=== PATIENT | male | born 1980 | race Caucasian/White ===

== ENCOUNTER 2016-09-15 09:23 | Outpatient (CLI) | payer OTHER ==
[~2016-09-15] VITALS: Ht 182.9 cm; Wt 91.6 kg
[2016-09-15 09:35] VITALS: BP 129/86
[2016-09-22] MEDS ORDERED: HYDR-3812 PO (09:00)
== END 2016-09-15 09:45 | disposition home or self-care (01) ==
LOC: PREOP 09:23
PROVIDERS: ATTEND Podiatrist Foot & Ankle Surgery
DX: Z01.818 Encounter for other preprocedural examination (principal); Z11.2 Encounter for screening for other bacterial diseases; M72.2 Plantar fascial fibromatosis; M71.9 Bursopathy, unspecified; M79.2 Neuralgia and neuritis, unspecified
CPT/HCPCS: 87081

== ENCOUNTER 2016-09-22 06:00 | Day surgery (SDC) | payer OTHER ==
[~2016-09-22] VITALS: Ht 182.9 cm; Wt 91.6 kg
[2016-09-22] MEDS: LACTATED RINGERS 1,000 ML IV PRN ×2 (07:00→08:23)
[2016-09-22] MEDS ORDERED: BUPIVACAINE 0.5% 30 ML (SENSORCAINE) VIAL ONE (07:01)
[2016-09-22] MEDS ORDERED: ceFAZolin 1,000 MG (ANCEF) VIAL ONE (07:04)
[2016-09-22] MEDS ORDERED: NORMAL SALINE (BAXTER MINI) 50 ML IV ONE (07:04)
[2016-09-22] MEDS ORDERED: SEVOFLURANE (ULTANE) 15 ML INHAL SOLN ONE ×4 (07:07→10:07)
[2016-09-22] MEDS ORDERED: LIDOCAINE PF 2% 10 ML (XYLOCAINE) AMP ONE (07:07)
[2016-09-22] MEDS ORDERED: proPOfol 200 MG/20 ML (DIPRIVAN) VIAL IV ONE (07:07)
[2016-09-22] MEDS ORDERED: LACTATED RINGERS 1,000 ML IV ONE ×2 (07:07→08:27)
[2016-09-22] MEDS ORDERED: MIDAZOLAM 2 MG/2 ML (VERSED) VIAL ONE (07:08)
[2016-09-22] MEDS ORDERED: fentaNYL INJECTION 100 MCG/2 ML AMP ONE ×2 (07:08→08:15)
[2016-09-22 07:22] VITALS: BP 130/86
[2016-09-22] MEDS ORDERED: ceFAZolin 1 GM/NS 50 ML IVPB IV ONE ×2 (07:30)
[2016-09-22] MEDS ORDERED: CATHETER FLUSH 10 ML SYR IV PRN (07:30)
--- NOTE | 2016-09-22 07:47 | Progress Note-Pre Operative ---
Pre-Operative Progress Note H&P Reviewed The H&P was reviewed, patient examined and no changes noted. Date H&P Reviewed: Sep 22, 2016 Time H&P Reviewed: 07:40 Pre-Operative Diagnosis: Plantar Fasciitis/bursitis right foot FLAQUITO BENOIT DPM Sep 22, 2016 7:47 am
[2016-09-22] MEDS ORDERED: DEXAMETHASONE PF 10 MG/ML (DECADRON) VIAL ONE ×2 (08:07→08:34)
[2016-09-22] MEDS ORDERED: KETOROLAC 30 MG/ML VIAL ONE (08:15)
[2016-09-22] MEDS ORDERED: ONDANSETRON 4 MG/2 ML (SDV) Z0FRAN ONE (08:27)
[2016-09-22] MEDS ORDERED: BUPIVACAINE 0.5% 30 ML (SENSORCAINE) VIAL INJ ONE (08:45)
--- NOTE | 2016-09-22 08:54 | Progress Note-Post Operative ---
Post-Operative Progess Note Pre-Operative Diagnosis Plantar Fasciitis/bursitis right foot Post-Operative Diagnosis Same Post-Op Procedure Note Date of Procedure: Sep 22, 2016 Name of Procedure: Open Plantar Fascial Release, right Anesthesia Type General Estimated blood loss (mL): Minimal Specimen(s) collected Plantar Fascia, right FLAQUITO BENOIT DPM Sep 22, 2016 8:54 am
[2016-09-22] MEDS ORDERED: LACTATED RINGERS 1,000 ML IV SCH (08:58)
[2016-09-22] MEDS ORDERED: HYDR-3812 PO (09:00)
[2016-09-22] MEDS ORDERED: ONDANSETRON 4 MG/2 ML (SDV) Z0FRAN IVP PRN (09:00)
[2016-09-22] MEDS ORDERED: HYDROcodone/APAP 5 MG/325 MG (LORTAB) TAB PO PRN (09:00)
[2016-09-22] MEDS ORDERED: fentaNYL INJECTION 100 MCG/2 ML AMP IV PRN (09:15)
[2016-09-22] MEDS ORDERED: morphine INJ 10 MG/ML 1ML (SYR OR VIAL) IV PRN (09:15)
[2016-09-22] MEDS ORDERED: ONDANSETRON 4 MG/2 ML (SDV) Z0FRAN IV ONE (09:15)
[2016-09-22 09:35] VITALS: BP 128/90
[2016-09-22 10:05] VITALS: BP 131/90
--- NOTE | 2016-09-22 10:43 | Physical Therapy Ortho Eval ---
PT Orthopedic Evaluation Type of Surgery plantar fasciitis/bursitis Prior Level of Function Current Living Status: Spouse Locomotion (Upon Admit): Independent Subjective Subjective Reports he has used crutches before. Entry Into Home: Stairs With Railing Steps Into Home: 3 Objective Objective ROM is WFL B LE's; right ankle NT Motor Control Motor Control: Motor Control WNL ROM ROM: WFL Strength Strength: WFL Transfer Pt able to transfer without assist. Gait Gait Assistive Device: Crutches Weight Bearing Restriction: Non Weight Bearing Location Restriction: R LE Gait (FIM): 5 Distance (FIM): 3=150 ft Summary/Comments Education on safe and correct use of crutches with NWB status. Adjusted crutches to proper height. Pt post treatment was mod indep with use of crutches. Training on steps with crutches which pt is mod indep with at discharge. Treatment Rendered Treatment: Gait Train, Step Train Assessment/Goals Goal Time Frame: 1 Visit Understands HEP: Yes Safe Ambulation: Yes Mod indep with gait and steps with crutches NWB right. Pt is indep with bed mobility. Plan Treatment Plan: Discharge Treatment Duration: 1 visit Visits Per Week: 1 PT/Family Agrees to Plan: Yes Time Time In: 1015 Time Out: 1033 Total Billed Treatment Time: 18 Billed Treatment Time visit Ed 18 minutes No ZEESHAN RUIZ PT Sep 22, 2016 10:43
--- NOTE | 2016-09-22 11:48 | OPERATIVE REPORT ---
PROCEDURE PHYSICIAN: EVON BENOIT DATE OF PROCEDURE: 09/22/2016 SURGEON: Evon Benoit DPM. PREOPERATIVE DIAGNOSIS: Plantar fascitis with bursitis, right heel. POSTOPERATIVE DIAGNOSIS: Plantar fasciitis with bursitis, right heel. PROCEDURE: Open plantar fascial release right. WOUND CLASS: Clean. ANESTHESIA: General. HEMOSTASIS: Pneumatic thigh tourniquet at 300 mmHg. INDICATION: This 35-year-old male presents complaining of chronic heel pain on the right. Conservative therapy is met with unsatisfactory results and the patient is agreeable to surgical intervention after risk and complications were discussed at length. No guarantees were extended to the patient and he is willing to proceed. PROCEDURE: The patient was brought back to the operating room, placed in a secure, supine position. Appropriate timeout was performed. General anesthetic was then induced. A pneumatic thigh tourniquet was placed on the right lower extremity over several layers of padding. The right foot was then prepped and draped in a normal sterile manner. The right foot was then elevated, allowed to exsanguinate after which the tourniquet was inflated to 300 mmHg Attention was then directed to the medial aspect of the right calcaneus where a 4 cm longitudinal linear incision was created at the juncture of the dorsal and plantar skin. The incision was deepened in the same plane with great care to identify and retract all vital neurovascular structures. Blunt dissection was carried out. The medial calcaneal nerve was identified and isolated. It was traced proximally as far as possible and a release of the overlying deep fascia was performed. Blunt and sharp dissection was carried out down to the plantar fascia to detach the calcaneus and it was released from its calcaneus insertion to the proximal half of the plantar fascia with dissection of the plantar fascia sent for gross and microscopic evaluation. Blunt dissection was carried out to the inferior aspect of the right calcaneus exploring for a bursal sac which was not identified. No other abnormalities were identified at this time. The wound was flushed with copious amounts of normal saline and closure was performed in layers. Deep closure was not performed. Superficial closure was performed with 3-0 and 4-0 Vicryl, followed by 4-0 Prolene for skin closure in a horizontal mattress type stitch. Postoperative injection consisted of 10 mg of dexamethasone along the medial calcaneal area. Injection also included 12 mL of 0.5% Marcaine plain injecting the local infusion to the surgical site. Postoperative dressing consisted of the Betadine soaked Adaptic, sterile 4 x 4, sterile Kerlix, all secured with a Coban wrap. The patient tolerated the anesthesia and procedure well and was transferred from the operating room to the recovery area with vital signs stable and vascular status intact to all digits of the right foot. Postoperative instructions were dispensed which included nonweightbearing on the right foot for the next month. He is to use hydrocodone as instructed Job ID: [id number] Dictated Date: 09/22/2016 08:58:28 Furniture Mover Date: 09/22/2016 11:39:08 / allen
== END 2016-09-22 10:27 | disposition home or self-care (01) ==
LOC: SDC 06:00
PROVIDERS: ATTEND Podiatrist Foot & Ankle Surgery
DX: M72.2 Plantar fascial fibromatosis (principal); M77.51 Other enthesopathy of right foot and ankle

== ENCOUNTER 2022-10-09 05:34 | Outpatient (CLI) | payer OTHER ==
[~2022-10-09] VITALS: Ht 182.9 cm; Wt 101.8 kg
[~2022-10-09 05:34] MED LIST: ACHD5005 PO
== END 2022-10-14 10:08 | disposition home or self-care (01) ==
LOC: PREOP 05:34
PROVIDERS: ATTEND Podiatrist Foot & Ankle Surgery
DX: Z01.818 Encounter for other preprocedural examination (principal); M72.2 Plantar fascial fibromatosis

== ENCOUNTER 2022-10-17 11:01 | Day surgery (SDC) | payer OTHER ==
[2022-10-17] VITALS (10 sets, daily range): BP systolic 105–138; BP diastolic 65–105
[~2022-10-17] VITALS: Ht 182.8 cm; Wt 101.8 kg
[2022-10-17] MEDS ORDERED: ceFAZolin INJECTION 1,000 MG in NS (IVPB) 50 ML IV ONE (11:15)
[2022-10-17] MEDS ORDERED: LACTATED RINGERS 1,000 ML IV PRN (11:15)
[2022-10-17] MEDS ORDERED: BUPIVACAINE 0.5% 30 ML (SENSORCAINE) VIAL ONE (12:26)
[2022-10-17] MEDS ORDERED: LIDOCAINE 1% INJ 20 ML VIAL ONE (12:26)
[2022-10-17] MEDS ORDERED: SEVOFLURANE (ULTANE) 15 ML INHAL SOLN ONE ×2 (12:55→14:01)
[2022-10-17] MEDS ORDERED: MIDAZOLAM 2 MG/2 ML (VERSED) VIAL ONE (12:55)
[2022-10-17] MEDS ORDERED: LIDOCAINE PF 2% 5 ML (XYLOCAINE) VIAL ONE (12:55)
[2022-10-17] MEDS ORDERED: proPOfol 200 MG/20 ML (DIPRIVAN) VIAL IV ONE (12:55)
[2022-10-17] MEDS ORDERED: fentaNYL INJ 100 MCG/2 ML AMP ONE (12:55)
[2022-10-17] MEDS ORDERED: ONDANSETRON 4 MG/2 ML (SDV) Z0FRAN ONE (12:55)
--- NOTE | 2022-10-17 13:00 | Progress Note-Pre Operative ---
Pre-Operative Progress Note Date of Available H&P: Oct 17, 2022 Date H&P Reviewed: Oct 17, 2022 Time H&P Reviewed: 13:00 Pre-Operative Diagnosis: Plantar Fasciitis, left foot. FLAQUITO BENOIT DPDenise Oct 17, 2022 13:00
[2022-10-17] MEDS ORDERED: LIDOCAINE 1% INJ 20 ML VIAL INJ ONE (13:48)
[2022-10-17] MEDS ORDERED: BUPIVACAINE 0.5% 30 ML (SENSORCAINE) VIAL INJ ONE (13:57)
--- NOTE | 2022-10-17 14:13 | Anesthesia-General Post-Op ---
General Patient Condition Mental Status/LOC: Same as Preop Cardiovascular: Satisfactory Nausea/Vomiting: Absent Respiratory: Satisfactory Pain: Controlled Complications: Absent Post Op Complications Complications None Follow Up Care/Instructions Patient Instructions None needed. Anesthesia/Patient Condition Patient Condition Patient is doing well, no complaints, stable vital signs, no apparent adverse anesthesia problems. No complications reported per nursing. ADITI LEBLANC CRNA Oct 17, 2022 14:13
--- NOTE | 2022-10-17 14:14 | Progress Note-Post Operative ---
Post-Operative Progess Note Surgeon (s)/Well Logging Captain (s) Surgeon FLAQUITO BENOIT DPM Well Logging Captain: none Pre-Operative Diagnosis Plantar Fasciitis, left foot. Post-Operative Diagnosis Same Procedure & Operative Findings Date of Procedure 10/17/22 Procedure Performed/Findings Plantar Fascial Release, left Anesthesia Type General Estimated Blood Loss Estimated blood loss (mL): Minimal Specimens/Packing Specimens Removed none FLAQUITO BENOIT DPM Oct 17, 2022 14:14
[2022-10-17] MEDS ORDERED: LACTATED RINGERS 1,000 ML IV SCH (14:15)
[2022-10-17] MEDS ORDERED: HYDROcodone/APAP 5 MG/325 MG (LORTAB) TAB PO PRN (14:15)
[2022-10-17] MEDS ORDERED: MEPERIDINE (DEMEROL) INJ 50 MG/ML IVP ONE (14:15)
[2022-10-17] MEDS ORDERED: morphine INJ 10 MG/ML 1ML (SYR OR VIAL) IVP ONE (14:15)
[2022-10-17] MEDS ORDERED: KETOROLAC 30 MG/ML VIAL IVP ONE (14:15)
[2022-10-17] MEDS ORDERED: ONDANSETRON 4 MG/2 ML (SDV) Z0FRAN IVP PRN (14:15)
[2022-10-17] MEDS ORDERED: ACHD5005 PO (14:16)
--- NOTE | 2022-10-17 21:28 | OPERATIVE REPORT ---
DATE OF SERVICE: 10/17/2022 PREOPERATIVE DIAGNOSIS: Plantar fasciitis, left. POSTOPERATIVE DIAGNOSIS: Plantar fasciitis, left. PROCEDURE: Open plantar fascial release, left foot. WOUND CLASS: Clean. ANESTHESIA: General. HEMOSTASIS: Pneumatic thigh tourniquet at 250 mmHg. INDICATIONS: This 41-year-old male presents with chronic pain to his left heel. Conservative therapy is met with unsatisfactory results and the patient is agreeable to surgical intervention after risks and complications were discussed at length. No guarantees were extended to the patient and he is willing to proceed. DESCRIPTION OF PROCEDURE: The patient was brought back to the operating table and placed in secure supine position. A general anesthetic was then induced. Appropriate timeout was performed. Pneumatic thigh tourniquet was placed on the left lower extremity over several layers of padding. A preoperative anesthetic was applied utilizing 10 mL of 1:1 mixture of 1% Xylocaine and 0.5% lidocaine injected in a local infusion to the plantar medial aspect of the left heel. The left foot was then prepped and draped in normal sterile manner. The left foot was then elevated and allowed to exsanguinate after which the tourniquet was inflated to 250 mmHg. Attention was then directed to the medial aspect of the left heel where a 4 cm longitudinal linear incision was created at the junction of the dorsal and plantar skin. The incision was deepened in the same plane with great care to identify and retract all vital neurovascular structures. Blunt dissection was carried out to the deep fascia where the abductor hallucis muscle belly was identified. The fibrous connection between the abductor hallucis and the quadratus plantae were identified and . The quadratus plantae was reflected inferiorly and the attachment at plantar fascial insertion to the inferior aspect of the calcaneus was released. No spurring was identified. No abnormality to the inferior aspect of the calcaneus was identified. No bursal sac was noted to the superficial area of the inferior left calcaneus. The plantar fascia again was released, the medial and central bands were released sharply. The wound was flushed with copious amounts of normal saline and closure was then performed in layers. Deep closure was performed with 3-0 Vicryl, superficial with 4-0 Vicryl, skin closure with 4-0 Prolene in an alternating simple interrupted and horizontal mattress type stitch. Postoperative injection consisted of 10 mL of 0.5% Marcaine injected in a local infusion to the surgical site and then 10 mg of dexamethasone was also injected to the same area. The patient tolerated the anesthesia and procedure well. Postoperative dressing consisted of Betadine-soaked Adaptic, sterile 4 x 4's, sterile Kerlix, all secured with a Coban wrap. The patient is to be nonweightbearing for the next 2 weeks with use of crutches. He was given a prescription for Vicodin. I will see the patient back in approximately 10 days period of time in the office or sooner if necessary. Job ID: [id number] DocumentID: [id number] Dictated Date: 10/17/2022 14:22:37 Interface Developer Date: 10/17/2022 21:26:00 Dictated By: FLAQUITO BENOIT DPM
== END 2022-10-17 15:55 | disposition home or self-care (01) ==
LOC: SDC 11:01
PROVIDERS: ATTEND Podiatrist Foot & Ankle Surgery
DX: M72.2 Plantar fascial fibromatosis (principal)
CPT/HCPCS: 87081

== ENCOUNTER 2023-01-16 05:33 | Outpatient (CLI) | payer OTHER ==
[~2023-01-16] VITALS: Ht 185.5 cm; Wt 100.0 kg
== END 2023-01-16 13:03 | disposition home or self-care (01) ==
LOC: PREOP 05:33
PROVIDERS: ATTEND Podiatrist Foot & Ankle Surgery
DX: Z01.818 Encounter for other preprocedural examination (principal)

== ENCOUNTER 2023-01-23 05:52 | Day surgery (SDC) | payer OTHER ==
[2023-01-23] VITALS (8 sets, daily range): BP systolic 117–136; BP diastolic 90–109
[~2023-01-23] VITALS: Ht 185.5 cm; Wt 100.0 kg
[2023-01-23] MEDS ORDERED: ceFAZolin INJECTION 1,000 MG in NS (IVPB) 50 ML IV ONE (06:00)
[2023-01-23] MEDS: LACTATED RINGERS 1,000 ML IV PRN ×2 (06:31→09:34)
[2023-01-23] MEDS ORDERED: fentaNYL INJ 100 MCG/2 ML AMP ONE (06:57)
[2023-01-23] MEDS ORDERED: MIDAZOLAM 2 MG/2 ML (VERSED) VIAL ONE (06:57)
[2023-01-23] MEDS ORDERED: LIDOCAINE 1% INJ 20 ML VIAL ONE (07:23)
[2023-01-23] MEDS ORDERED: BUPIVACAINE 0.5% 30 ML (SENSORCAINE) VIAL ONE (07:24)
--- NOTE | 2023-01-23 07:46 | Progress Note-Pre Operative ---
Pre-Operative Progress Note Date of Available H&P: January 23, 2023 Date H&P Reviewed: January 23, 2023 Time H&P Reviewed: 07:45 Pre-Operative Diagnosis: Tarsal Tunnel Syndrome, Plantar Fasciitis, left FLAQUITO BENOIT DPDenise January 23, 2023 07:46
[2023-01-23] MEDS ORDERED: ONDANSETRON 4 MG/2 ML (SDV) Z0FRAN ONE (08:34)
[2023-01-23] MEDS ORDERED: LIDOCAINE PF 2% 5 ML (XYLOCAINE) VIAL ONE (08:34)
[2023-01-23] MEDS ORDERED: proPOfol 200 MG/20 ML (DIPRIVAN) VIAL IV ONE (08:34)
[2023-01-23] MEDS ORDERED: SEVOFLURANE (ULTANE) 15 ML INHAL SOLN ONE (09:12)
[2023-01-23] MEDS ORDERED: HYDROmorphone 2 MG/ML VIAL (DILAUDID) IV ONE (09:30)
[2023-01-23] MEDS ORDERED: MEPERIDINE (DEMEROL) INJ 50 MG/ML IVP ONE (09:30)
[2023-01-23] MEDS ORDERED: ONDANSETRON 4 MG/2 ML (SDV) Z0FRAN IVP PRN (09:30)
[2023-01-23] MEDS ORDERED: PROMETHAZINE INJ 25 MG/ML (PHENERGAN) AMP IVP ONE (09:30)
[2023-01-23] MEDS ORDERED: morphine INJ 10 MG/ML 1ML (SYR OR VIAL) IVP ONE (09:30)
--- NOTE | 2023-01-23 09:34 | Progress Note-Post Operative ---
Post-Operative Progess Note Surgeon (s)/Supervisor Pile Driving (s) Surgeon FLAQUITO BENOIT DPM Supervisor Pile Driving: non Pre-Operative Diagnosis Tarsal Tunnel Syndrome, Plantar Fasciitis, left Post-Operative Diagnosis Same Procedure & Operative Findings Date of Procedure 01/23/23 Procedure Performed/Findings Tarsal Tunnel Release, Plantar Fascial Release, Release of Govea's Nerve, left Anesthesia Type General Estimated Blood Loss Estimated blood loss (mL): Minimal Specimens/Packing Specimens Removed Plantar Fascia, left FLAQUITO BENOIT DPM January 23, 2023 09:34
[2023-01-23] MEDS ORDERED: ACHD5005 PO (09:37)
[2023-01-23] MEDS ORDERED: HYDROcodone/APAP 5 MG/325 MG (LORTAB) TAB PO PRN (09:45)
[2023-01-23] MEDS ORDERED: LACTATED RINGERS 1,000 ML IV SCH (09:45)
--- NOTE | 2023-01-23 10:00 | Anesthesia-General Post-Op ---
General Patient Condition Mental Status/LOC: Same as Preop Cardiovascular: Satisfactory Nausea/Vomiting: Absent Respiratory: Satisfactory Pain: Controlled Complications: Absent Post Op Complications Complications None Follow Up Care/Instructions Patient Instructions None needed. Anesthesia/Patient Condition Patient Condition Patient is doing well, no complaints, stable vital signs, no apparent adverse anesthesia problems. No complications reported per nursing. KATHERINE CONNOR CRNA January 23, 2023 10:00
[2023-01-23] MEDS ORDERED: ACETAMINOPHEN 500 MG TAB (TYLENOL) PO ONE (10:15)
--- NOTE | 2023-01-23 10:49 | Physical Therapy Progress Note ---
Therapy Progress Note PT visited with patient, with patient stating he has crutches and was NWB left foot in October of this year. Declined skilled PT at this time. RN is aware. IVÁN COOLEY PT January 23, 2023 10:49
--- NOTE | 2023-01-23 17:58 | OPERATIVE REPORT ---
DATE OF SERVICE: 01/23/2023 SURGEON: Evon Benoit DPM. PREOPERATIVE DIAGNOSES: 1. Tarsal tunnel syndrome, left. 2. Govea's neuritis, left. 3. Plantar fasciitis, left. POSTOPERATIVE DIAGNOSES: 1. Tarsal tunnel syndrome, left. 2. Govea's neuritis, left. 3. Plantar fasciitis, left. PROCEDURE: 1. Tarsal tunnel release, left. 2. Release of Govea's nerve, left. 3. Plantar fascial release, left. WOUND CLASS: Clean. ANESTHESIA: General. HEMOSTASIS: Pneumatic thigh tourniquet at 300 mmHg. INDICATIONS: This is a 42-year-old male presents complaining of a painful left foot and ankle area. Conservative therapy is met with unsatisfactory results. He underwent plantar fascial release previously, which was unsuccessful. This release was addressing the attachment at the plantar fascia; however, it was evident that the tarsal tunnel and medial calcaneal nerve were also involved with the patient's calcaneal heel pain. The steps to mitigate his discomfort were unsuccessful and he is agreeable to surgical intervention after risks and complications were discussed at length. No guarantees were extended to the patient and he is willing to proceed. DESCRIPTION OF PROCEDURE: The patient was brought back to the operating table and placed in secure supine position. Appropriate timeout was performed. General anesthetic was then induced. Pneumatic thigh tourniquet was placed on the left lower extremity over several layers of padding. The left foot was then prepped and draped in normal sterile manner. The left foot was then elevated allowed to exsanguinate after which the tourniquet was inflated to 300 mmHg. Attention was then directed to the medial aspect of the left foot and ankle where a curvilinear incision was created just posterior to the distal portion of the medial malleolus extending inferiorly and slightly anterior along the tarsal tunnel to the plantar aspect of the foot just anterior to the calcaneal tuberosity area. The incision was deepened in the same plane with great care to identify and retract all vital neurovascular structures. Only necessary blood vessels were cauterized as encountered. The incision was deepened down to the deep fascia overlying the medial aspect of the abductor hallucis muscle belly. This fascia was tented and incised utilizing Metzenbaum scissors. The same technique was extended proximally along the flexor retinaculum where the flexor retinaculum was tented and the retinaculum was then incised, protecting the underlying neurovascular structures. This was extended all the way to the area of the medial malleolus, posterior aspect. Good reduction of tension to the tarsal tunnel was appreciated this time. Attention was then directed to the lateral aspect of the abductor hallucis muscle belly where it was from the underlying connective tissue in association with the abductor hiatus. The muscle belly was retracted medially and the neurovascular structures were protected as the septic and deep fascia was incised. This was done from superior to inferior as far as was able to be visualized. Next, dissection was carried out from the inferior aspect of the abductor hallucis muscle belly, it from the flexor digitorum brevis muscle belly where adipose tissue was removed after which the deep fascia was identified inferiorly between the quadratus plantae and the abductor hallucis. The deep fascia was then released with great care to protect underlying neurovascular structures. With digital palpation and manipulation, it was clear that the Govea's nerve and the distal tarsal tunnel was now dilated and there were no strictures noted. Attention was then directed towards the plantar fascia where the medial band of the plantar fascia was already incised for the access to Govea's nerve release. Next, the inferior or central band of the plantar fascia was noted to be thickened. This was from the overlying muscle belly of the flexor digitorum brevis. The plantar fascia was released to this central band proximally and 1 cm section was incised and sent for gross and microscopic evaluation. Good reduction of tension to the plantar fascia was noted at this time. No other abnormalities were identified at this juncture. The wounds were flushed with copious amounts of normal saline after which the tourniquet was released and active bleeders identified and cauterized. These were in the subcutaneous tissue. The wounds were then closed in layers. Subcutaneous tissue was reapproximated with 4-0 Vicryl, skin closure with 4-0 Prolene in an alternating simple interrupted and horizontal mattress type stitch. Postoperative injection consisted of 20 mL of 0.5% Marcaine injected a local infusion to the surgical site with great care not to penetrate blood vessels. A 10 mg of dexamethasone was also injected to the plantar aspect of the left heel at the plantar fascial area as well as the distal tarsal tunnel. Postoperative dressing consisted of Betadine-soaked Adaptic, sterile 4 x 4's, sterile Kerlix, ABDs, soft roll and a posterior splint secured with two Andrew wraps. The patient tolerated the anesthesia and procedure well and was transported from the operating room to the recovery area with vital signs stable and vascular status intact to all digits of the left foot. He is to be nonweightbearing on the left lower extremity, was given a prescription for Vicodin. He can go on to a baby aspirin as well for mild anticoagulant capacity. He is to follow up in my office in 10 days' period of time. Job ID: [id number] DocumentID: [id number] Dictated Date: 01/23/2023 09:49:43 Seismic Computer Date: 01/23/2023 17:56:00 Dictated By: EVON BENOIT DPM
== END 2023-01-23 10:55 ==
LOC: SDC 05:52
PROVIDERS: ATTEND Podiatrist Foot & Ankle Surgery
DX: G57.52 Tarsal tunnel syndrome, left lower limb (principal); G58.8 Other specified mononeuropathies; M72.2 Plantar fascial fibromatosis
CPT/HCPCS: 87081